=== PATIENT | male | born 1980 | race American Indian/Alaskan Native ===

== ENCOUNTER 2016-10-29 11:55 | Emergency (ER) | payer SELFPAY ==
[2016-10-29] MEDS ORDERED: MARCAINE 0.5% INFILTRATI ONE ×2 (12:15→12:21)
[2016-10-29] MEDS ORDERED: XYLOCAINE 1%/ EPI 1:100,000 INFILTRATI ONE (12:15)
[2016-10-29] MEDS ORDERED: MARCAINE 0.25% INFILTRATI ONE (12:15)
[2016-10-29] MEDS ORDERED: XYLOCAINE 1% 20 mL INFILTRATI ONE (12:21)
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
[2016-10-29] MEDS ORDERED: NACL 0.9% 500 ML IR ONE (12:33)
[2016-10-29 13:04] VITALS: BP 152/88
[2016-10-29] MEDS ORDERED: TRIPLE ANTIBIOTIC TP ONE (13:11)
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
== END 2016-10-29 13:42 | disposition home or self-care (01) ==
LOC: ED 11:55
DX: S61.217A Laceration without foreign body of left little finger without damage to nail, initial encounter (principal); W27.8XXA Contact with other nonpowered hand tool, initial encounter; Y93.89 Activity, other specified; Y99.9 Unspecified external cause status; Y92.89 Other specified places as the place of occurrence of the external cause
CPT/HCPCS: 99283; A6250

== ENCOUNTER 2016-11-11 21:56 | Emergency (ER) | payer SELFPAY ==
[2016-11-11 22:25] VITALS: BP 159/102
== END 2016-11-12 03:50 | disposition left against medical advice (07) ==
LOC: ED 21:56
DX: Z48.02 Encounter for removal of sutures (principal); I10 Essential (primary) hypertension; Z88.0 Allergy status to penicillin; Z53.21 Procedure and treatment not carried out due to patient leaving prior to being seen by health care provider